=== PATIENT | female | born 1950 | race Caucasian/White ===

== ENCOUNTER → 2024-11-23 | Outpatient (CLI) | payer MEDICARE, OTHER, SELFPAY ==
--- NOTE | 2024-11-23 14:15 | XR_ITS ---
Examination: MRI cervical spine without intravenous contrast Date and time of exam: November 23, 2024 1509 hours INDICATIONS: Neck pain radiating to the right shoulder and right arm and fingers this month Technique: Multiple axial and sagittal sections of the cervical spine to been obtained. T2 weighted sagittal sections, TR 3, 270, TE 117 T1-weighted sagittal sections, TR 500, TE 11 T1-weighted axial sections, TR 607, TE 12, axial sections TR 18, TE 27 and T2 weighted transverse sections, TR 3920, TE 122. Findings: Adequate alignment cervical vertebral bodies No cervical fracture Intact odontoid Advanced disc narrowing C5-C6, C6-C7, C7-T1 No localized enlargement cervical cord C2-C3 moderate right neural foraminal stenosis C4-C5 advanced right moderate left neural foraminal stenosis C4-C5 advanced right neural foraminal stenosis moderate left neural foraminal stenosis C5-C6 3 mm central subarticular osteophyte disc complex, advanced bilateral neural foraminal stenosis C6-C7 4 mm central osteophyte disc complex, advanced bilateral neural foraminal stenosis C7-T1 4 mm central subarticular osteophyte disc complex, advanced right neural foraminal stenosis IMPRESSION: Advanced degenerative disc disease C5-C6, C6-C7, C7-T1 Severe spinal stenosis C4-C5, C5-C6, C6-C7 Additional spinal stenosis as above
--- NOTE | 2024-11-23 14:45 | XR_ITS ---
Examination: MRI lumbar spine without contrast Date and time of exam: November 23, 2024 at 1509 hours INDICATIONS: Back pain beginning 2023 with the abnormal gait Technique: Multiple MRI axial and sagittal sections lumbar spine. Sagittal T2-weighted images, TR 3500, TE 118 T1 weighted transverse sections, TR 688 T8.5, T2-weighted sagittal sections T1 weighted sagittal sections TR 621, TE 30 T2 axial sections, TR 4, 190, TE 84. 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 lumbar dextroscoliosis 27 degrees No lumbar fracture Advanced disc narrowing L2-L3, L5-S1 Mildly heterogeneous marrow signal lumbar vertebral bodies No spondylolisthesis L5-S1 8mm central disc extending to the foraminal regions, mild left moderate right L5 ganglionic compression L4-L5 3 mm central lumbar disc bulge L3-L4 3 mm central lumbar disc bulge L2-L3 no disc protrusion L1-L2 small foraminal disc bulges IMPRESSION: Advanced degenerative disc disease L2-L3, L5-S1 L5-S1 8mm central lumbar disc extending to the foraminal regions, mild left moderate right L5 ganglionic compression L4-L5, L3-L4 3 mm central lumbar disc bulges
== END | disposition home or self-care (01) ==
LOC: SMRI 14:10
PROVIDERS: PCP Physician Assistant; Referring Provider Physician Assistant; Visit Provider Physician Assistant
DX: M50.322 Other cervical disc degeneration at C5-C6 level (principal); M48.02 Spinal stenosis, cervical region; M50.33 Other cervical disc degeneration, cervicothoracic region; M48.03 Spinal stenosis, cervicothoracic region; M51.369 Other intervertebral disc degeneration, lumbar region without mention of lumbar back pain or lower extremity pain; G95.20 Unspecified cord compression
CPT/HCPCS: 72141; 72148

== ENCOUNTER → 2024-11-24 | Outpatient (CLI) | payer MEDICARE, OTHER, SELFPAY ==
--- NOTE | 2024-11-24 14:30 | XR_ITS ---
Examination: MRI thoracic spine without contrast. Date and time of exam: November 24, 2024 1442 hours INDICATIONS: Back pain beginning 8 months ago radiating to the right ribs bladder weakness Technique: Multiple sagittal and axial images of the thoracic spine have been obtained. T1 weighted localizer, sagittal T2 weighted images, TR 30-50, TE 148, T1 weighted sagittal images, TR 650, TE 14, T2-weighted transverse images, TR 6770, TE 142 Findings: Adequate alignment thoracic vertebral bodies on the lateral view Moderate to advanced diffuse thoracic disc narrowing most severe T3-T7 Moderate thoracic spondylosis No acute thoracic fracture Diffuse thoracic disc desiccation Minimal thoracic disc bulges in the 1 to 2 mm range No impingement upon the thoracic cord Impression: Moderate to advanced diffuse thoracic degenerative disc disease, most severe T3-T7
== END | disposition home or self-care (01) ==
LOC: SMRI 11-26 07:45
PROVIDERS: PCP Physician Assistant; Referring Provider Physician Assistant; Visit Provider Physician Assistant
DX: M51.34 Other intervertebral disc degeneration, thoracic region (principal)
CPT/HCPCS: 72146

== ENCOUNTER → 2024-11-27 | Outpatient (CLI) | payer MEDICARE, OTHER, SELFPAY ==
--- NOTE | 2024-11-27 10:30 | XR_ITS ---
Examination: Screening digital mammography, bilateral Computer aided detection 3-D breast Tomosynthesis, bilateral Date and time of exam: November 27, 2024 1014 hours Compared to mammograms dating to October 07, 2019 Indication: Screening Technique: Nonmagnified MLO, CC views of the breasts to been obtained, reconstructed from 3-D Tomosynthesis images. R2 computer aided detection program utilized for evaluation of suspicious masses and/or abnormal calcifications. 3-D Tomosynthesis images obtained. Findings: Scattered areas of fibroglandular density. Benign calcifications. No interval suspicious masses Impression: BI-RADS category II: Benign Findings. Recommend 1 year follow-up mammogram.
[2024-11-27 11:06] LABS: Collection Type, Urine Clean Catch
[2024-11-27 11:37] LABS: Basophils # (Auto) 0.1 Thou/mm3 (0.0-0.2); Basophils % (Auto) 1 % (0-2.5); Eosinophils # (Auto) 0.1 Thou/mm3 (0.0-0.5); Eosinophils % (Auto) 1 % (0-10); Hematocrit 41.2 % (36.0-46.0); Hemoglobin 13.7 g/dL (12.0-16.0); Immature Granulocytes % (Auto) 1 % (0-0); Immature Granulocytes Auto 0.04 Thou/mm3 (0.00-0.00); Lymphocytes # (Auto) 1.9 Thou/mm3 (1.0-4.8); Lymphocytes % (Auto) 24 % (10-50); Mean Corpuscular HGB Conc 33.3 g/dl (31.0-37.0); Mean Corpuscular Volume 90 fL (80-100); Monocytes # (Auto) 0.4 Thou/mm3 (0.0-0.8); Monocytes % (Auto) 6 % (0-12); Neutrophils # (Auto) 5.3 Thou/mm3 (1.8-7.7); Neutrophils % (Auto) 68 % (37-80); Nucleated Red Blood Cell % 0 /100 WBC (0); Platelet Count 215 Thou/mm3 (140-440); RDW Standard Deviation 46.5 fL (36.4-46.3); Red Blood Count 4.57 Miln/mm3 (4.00-5.20); White Blood Count 7.8 Thou/mm3 (3.6-11.0)
[2024-11-27 11:43] LABS: Bilirubin,Urine Negative (Negative); Blood,Urine Negative (Negative); Clarity,Urine Clear (Clear/Hazy); Color,Urine Lt-Yellow (Lt Yel-Yel); Culture Indicated,Urine Not Indicated; Glucose, Urine Negative (Negative); Ketones,Urine Negative (Negative); Leukocyte Esterase,Urine Negative (Negative); Nitrite,Urine Negative (Negative); Protein,Urine Negative (Neg - Trace); RBC,Urine 3 /hpf (0-3); Specific Gravity,Urine 1.012 (1.001-1.035); Squamous Epithelial Cell,Urine 1 /hpf (0-5); Urobilinogen,Urine Negative mg/dL (0.0-1.0); WBC,Urine 1 /hpf (0-5)
[2024-11-27 11:50] LABS: Vitamin B12 698 pg/mL (211-911); Vitamin D 25 Hydroxy Total 71.3 ng/mL (7.3-40.2)
[2024-11-27 12:23] LABS: Alanine Aminotransferase 22 U/L (10-49); Albumin, Serum 4.6 gm/dL (3.4-4.8); Alkaline Phosphatase 69 U/L (46-116); Anion Gap 8 (7-16); Aspartate Amino Transferase 21 U/L (0-34); BUN/Creatinine Ratio 19 Ratio (12-20); Bilirubin,Total 0.8 mg/dL (0.3-1.2); Blood Urea Nitrogen 15 mg/dL (9-23); Calcium 9.5 mg/dL (8.3-10.6); Calcium (Corrected) 9.5 mg/dL (8.5-10.1); Carbon Dioxide 29.5 mMol/L (20.0-31.0); Chloride 102 mMol/L (98-107); Creatinine (Component) 0.8 mg/dL (0.6-1.3); Globulin 2.3 gm/dL (2.3-3.5); Glucose 117 mg/dL (74-106); Osmolality,Calculated 279 (275-295); Potassium 3.8 mMol/L (3.4-5.1); Sodium 139 mMol/L (136-145); Thyroid Stimulating Hormone 1.29 uIU/mL (0.55-4.78); Total Protein 6.9 gm/dL (5.7-8.2); eGFR > 60 See Note
[2024-11-27 13:43] LABS: Cardiac Risk Estimate 3.2 RATIO (3.7-5.6); Cholesterol 174 mg/dL (132-200); HDL Cholesterol 55 mg/dL (40-60); LDL Cholesterol,Calculated 98 mg/dL (0-130); Triglycerides 104 mg/dL (30-150)
[2024-11-27 13:46] LABS: Glucose Estimated Average 123 mg/dL (80-131); Hemoglobin A1C 5.9 % Hgb (4.8-6.0)
== END | disposition home or self-care (01) ==
LOC: CDIM 09:58 → COPL 10:30
PROVIDERS: PCP Physician Assistant; Referring Provider Physician Assistant; Visit Provider Radiology Diagnostic Radiology
DX: Z12.31 Encounter for screening mammogram for malignant neoplasm of breast (principal); R92.323 Mammographic fibroglandular density, bilateral breasts; E78.5 Hyperlipidemia, unspecified; I10 Essential (primary) hypertension; E55.9 Vitamin D deficiency, unspecified; R73.01 Impaired fasting glucose
CPT/HCPCS: 36415; 77063; 77067; 80053; 80061; 81001; 82306; 82607; 83036; 84443; 85025

== ENCOUNTER → 2024-11-30 | Outpatient (CLI) | payer MEDICARE, OTHER, SELFPAY ==
[2024-12-04 06:43] LABS: Fecal Globin Result DETECTED (NOT DETECTED)
== END | disposition home or self-care (01) ==
LOC: SLDO 14:32
PROVIDERS: PCP Family Medicine; Referring Provider Physician Assistant; Visit Provider Physician Assistant
DX: E78.5 Hyperlipidemia, unspecified (principal); I10 Essential (primary) hypertension; E55.9 Vitamin D deficiency, unspecified; R73.01 Impaired fasting glucose
CPT/HCPCS: 82274; G0328

== ENCOUNTER → 2025-04-26 | Outpatient (CLI) | payer MEDICARE, OTHER, SELFPAY ==
--- NOTE | 2025-04-26 08:03 | EKG_ITS ---
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
[2025-04-26 08:49] LABS: Basophils # (Auto) 0.1 Thou/mm3 (0.0-0.2); Basophils % (Auto) 1 % (0-2.5); Eosinophils # (Auto) 0.2 Thou/mm3 (0.0-0.5); Eosinophils % (Auto) 3 % (0-10); Hematocrit 40.2 % (36.0-46.0); Hemoglobin 13.8 g/dL (12.0-16.0); Immature Granulocytes % (Auto) 1 % (0-0); Immature Granulocytes Auto 0.05 Thou/mm3 (0.00-0.00); Lymphocytes # (Auto) 1.9 Thou/mm3 (1.0-4.8); Lymphocytes % (Auto) 25 % (10-50); Mean Corpuscular HGB Conc 34.3 g/dl (31.0-37.0); Mean Corpuscular Hemoglobin 29.9 pg (25.0-35.0); Mean Corpuscular Volume 87 fL (80-100); Monocytes # (Auto) 0.5 Thou/mm3 (0.0-0.8); Monocytes % (Auto) 6 % (0-12); Neutrophils % (Auto) 65 % (37-80); Nucleated Red Blood Cell % 0 /100 WBC (0); Platelet Count 188 Thou/mm3 (140-440); Red Blood Count 4.62 Miln/mm3 (4.00-5.20); White Blood Count 7.7 Thou/mm3 (3.6-11.0)
[2025-04-26 09:08] LABS: Albumin, Serum 4.7 gm/dL (3.4-4.8); Anion Gap 6 (7-16); BUN/Creatinine Ratio 14 Ratio (12-20); Blood Urea Nitrogen 13 mg/dL (9-23); Carbon Dioxide 29.9 mMol/L (20.0-31.0); Chloride 103 mMol/L (98-107); Creatinine (Component) 0.9 mg/dL (0.6-1.3); Glucose 122 mg/dL (74-106); Osmolality,Calculated 278 (275-295); Phosphorous 3.3 mg/dL (2.4-5.1); Potassium 3.7 mMol/L (3.4-5.1); Sodium 139 mMol/L (136-145); eGFR > 60 See Note
== END | disposition home or self-care (01) ==
LOC: COPL 07:29
PROVIDERS: PCP Physician Assistant; Referring Provider Orthopaedic Surgery; Visit Provider Orthopaedic Surgery
DX: Z01.818 Encounter for other preprocedural examination (principal); Z01.812 Encounter for preprocedural laboratory examination; E13.9 Other specified diabetes mellitus without complications
CPT/HCPCS: 36415; 80069; 85025; 93005